=== PATIENT | female | born 1990 | race African-American/Black ===

== ENCOUNTER 2018-05-02 12:23 | Emergency (ER) | payer BC ==
[~2018-05-02] VITALS: Ht 162.6 cm; Wt 53.0 kg
[2018-05-02] MEDS ORDERED: IBUPROFEN 600MG TABLET PO ONE (20:00)
[2018-05-02 22:19] VITALS: BP 113/73
== END 2018-05-02 23:03 | disposition home or self-care (01) ==
LOC: ER 13:00
DX: M25.571 Pain in right ankle and joints of right foot (principal); M25.551 Pain in right hip; S90.01XA Contusion of right ankle, initial encounter; V49.40XA Driver injured in collision with unspecified motor vehicles in traffic accident, initial encounter; Y93.89 Activity, other specified; Y92.410 Unspecified street and highway as the place of occurrence of the external cause
CPT/HCPCS: 73502; 73610; 81025; 99283

== ENCOUNTER 2024-12-23 19:03 | Emergency (ER) | payer BC ==
[~2024-12-23] VITALS: Ht 165.1 cm; Wt 54.0 kg
[2024-12-23 19:17] VITALS: O2SAT 98
[2024-12-23] MEDS ORDERED: TETANUS, DIPHTHERIA, PERTUSSIS VAC/PF 0.5ML (>10YR OLD) IM ONE (23:15)
[2024-12-23] MEDS: ACETAMINOPHEN 325MG TABLET PO ONE (23:15)
[2024-12-23] MEDS: LIDOCAINE HCL 1% 20ML VIAL INFIL ONE (23:15)
[2024-12-24 00:08] LABS: HCG SCREEN NEGATIVE
[2024-12-24] MEDS ORDERED: KETOROLAC 15MG/ML VIAL IM ONE (02:00)
[2024-12-24] MEDS ORDERED: DOXY100T2 MT (02:08)
[2024-12-24] MEDS ORDERED: IBUP-2028 MT (02:08)
[2024-12-24] MEDS ORDERED: BO1 TP (02:08)
[2024-12-24] MEDS: KETOROLAC 15MG/ML VIAL IM NR (02:30)
[2024-12-24] MEDS: ACETAMINOPHEN 325MG TABLET PO NR (02:31)
[2024-12-24] MEDS: TETANUS, DIPHTHERIA, PERTUSSIS VAC/PF 0.5ML (>10YR OLD) IM ONE (02:32)
[2024-12-24 02:33] VITALS: BP 121/79; PULSE 76; RESP 18; TEMP 37.1; O2SAT 100
[2024-12-24] MEDS: LIDOCAINE HCL 1% 20ML VIAL INFIL NR (02:33)
== END 2024-12-24 02:45 | disposition home or self-care (01) ==
LOC: ER 19:03
DX: S61.259A Open bite of unspecified finger without damage to nail, initial encounter (principal); F41.9 Anxiety disorder, unspecified; F32.A Depression, unspecified; Z98.890 Other specified postprocedural states; Z88.0 Allergy status to penicillin; W54.0XXA Bitten by dog, initial encounter; Y93.89 Activity, other specified; Y92.89 Other specified places as the place of occurrence of the external cause; Y99.8 Other external cause status
CPT/HCPCS: 99284; 84703; 73130; 90715; 90471; 96372; J1885; J2003